=== PATIENT | male | born 1995 | race Caucasian/White ===

== ENCOUNTER 2018-05-12 01:56 | Emergency (ER) | payer SELFPAY ==
[2018-05-12] MEDS ORDERED: Ibuprofen 800 MG TAB ONE (02:17)
[2018-05-12] MEDS ORDERED: Azithromycin 250 MG TAB ONE (02:17)
== END 2018-05-12 02:21 | disposition home or self-care (01) ==
LOC: NAV ERS 01:56
DX: H66.93 Otitis media, unspecified, bilateral (principal)
CPT/HCPCS: 99283